=== PATIENT | male | born 2005 | race Hispanic/Latino ===

== ENCOUNTER 2023-06-28 20:55 | Observation (INO) | payer SELFPAY, OTHER ==
[~2023-06-28 20:55] MED LIST: Iopamidol-370 76% 500 ML MDV (1 ML CHARGE) ONE
[2023-06-28 21:23] LABS: #Basophils 0.1 thou/uL (0.0-0.2); #Eosinphils 0.2 thou/uL (0.0-0.7); #Monocytes 0.9 thou/uL (0.11-0.59); #Neutrophils 10.1 thou/uL (1.40-6.50); %Basophils 0.5 % (0.0-1.0); %Eosinophils 1.4 % (0.0-10.0); %Lymphocytes 24.8 % (28.0-48.0); %Monocytes 5.7 % (0.0-4.0); %Neutrophils 66.5 % (31.0-61.0); Hematocrit 46.4 % (42.0-52.0); Hemoglobin 15.4 g/dL (14.0-18.0); Mean Corpuscular HGB CONC 33.2 g/dL (32.0-36.0); Mean Corpuscular Hemoglobin 28.2 pg (25.0-35.0); Mean Corpuscular Volume 84.8 fl (78.0-98.0); Mean Platelet Volume 10.6 fL (7.4-10.4); Platelet Count 350 10x3/uL (130-400); RBC Distribution Width 12.5 % (11.5-14.5); Red Blood Cell (RBC) Count 5.47 mill/uL (4.00-5.20); White Blood Cell (WBC) Count 15.1 10x3/uL (4.8-10.8)
[2023-06-28 21:51] LABS: Troponin I Less than 0.010 ng/mL (< 0.028)
[2023-06-28 21:52] LABS: ALT (SGPT) 67 U/L (8-55); AST (SGOT) 57 U/L (10-45); Albumin 4.7 g/dL (3.5-5.0); Alkaline Phosphatase 115 U/L (50-130); Anion Gap 17 mmol/L (10-20); BUN (Urea Nitrogen) 13 mg/dL (8.4-21.0); Bilirubin, Total 0.5 mg/dL (0.2-1.2); Calc. Creatinine Clearance 0 mL/min (70-130); Calcium 9.6 mg/dL (7.8-10.44); Carbon Dioxide 16 mmol/L (22-29); Chloride 108 mmol/L (98-107); Estimated GFR 103; Globulin 2.8 g/dL (2.4-3.5); Glucose 129 mg/dL (70-105); Potassium 3.4 mmol/L (3.5-5.1); Protein, Total 7.5 g/dL (6.0-8.3); Sodium 138 mmol/L (136-145)
[2023-06-28 21:56] LABS: Alcohol Less than 10.0 mg/dL (Less than 10); Salicylate Less than 8.0 mg/dL (15.0-30.0)
[2023-06-28] MEDS ORDERED: Ondansetron PF 4 MG/2 ML Vial ONE (22:11)
[2023-06-28] MEDS ORDERED: Morphine 4 MG/ML VIAL ONE (22:11)
[2023-06-28] MEDS ORDERED: Ketorolac Tromethamine 30 MG (1 mL) VIAL ONE (22:11)
[2023-06-28 22:12] LABS: Acetaminophen Less than 10 mcg/mL (10.0-30.0); Lipase 31 U/L (8-78)
[2023-06-28] MEDS ORDERED: traMADol HCl 50 MG TAB PO PRN (23:06)
[2023-06-28] MEDS ORDERED: Morphine 2 MG/ML VIAL SLOW IVP PRN (23:06)
[2023-06-28] MEDS ORDERED: Ipratropium/Albuterol 3 ML NEB NEB PRN (23:06)
[2023-06-28] MEDS ORDERED: Ondansetron ODT 4 MG TAB PO PRN (23:06)
[2023-06-28] MEDS ORDERED: Cyclobenzaprine 10 MG TAB PO PRN (23:06)
[2023-06-28] MEDS ORDERED: Ondansetron PF 4 MG/2 ML Vial IVP PRN (23:06)
[2023-06-28] MEDS ORDERED: traMADol HCl 50 MG TAB PO SCH (23:59)
[2023-06-29 00:23] VITALS: BMI 32.2
[2023-06-29] MEDS: Ibuprofen 600 MG TAB PO SCH ×3 (00:46→14:34)
[2023-06-29] MEDS: Acetaminophen 500 MG TAB PO SCH ×4 (00:47→17:19)
[2023-06-29] MEDS: Lactated Ringer's 1,000 ML IV SCH ×2 (05:24→05:40)
[2023-06-29 05:42] LABS: #Monocytes 1.1 thou/uL (0.11-0.59); #Neutrophils 14.5 thou/uL (1.40-6.50); %Basophils 0.2 % (0.0-1.0); %Eosinophils 0.1 % (0.0-10.0); %Monocytes 6.2 % (0.0-4.0); %Neutrophils 85.1 % (31.0-61.0); Hematocrit 48.2 % (42.0-52.0); Hemoglobin 14.8 g/dL (14.0-18.0); Mean Corpuscular HGB CONC 30.7 g/dL (32.0-36.0); Mean Corpuscular Hemoglobin 28.2 pg (25.0-35.0); Mean Platelet Volume 11.1 fL (7.4-10.4); Platelet Count 289 10x3/uL (130-400); RBC Distribution Width 12.8 % (11.5-14.5); Red Blood Cell (RBC) Count 5.25 mill/uL (4.00-5.20)
[2023-06-29 05:43] LABS: Mean Corpuscular Volume 91.8 fl (78.0-98.0)
[2023-06-29 06:09] LABS: Anion Gap 15 mmol/L (10-20); BUN (Urea Nitrogen) 16 mg/dL (8.4-21.0); Calc. Creatinine Clearance 187 mL/min (70-130); Calcium 9.5 mg/dL (7.8-10.44); Carbon Dioxide 19 mmol/L (22-29); Chloride 107 mmol/L (98-107); Estimated GFR 127; Glucose 111 mg/dL (70-105); Magnesium 1.8 mg/dL (1.7-2.2); Phosphorus 4.2 mg/dL (2.3-4.7); Potassium 4.6 mmol/L (3.5-5.1); Sodium 136 mmol/L (136-145)
[2023-06-29] MEDS ORDERED: Senokot S 8.6-50 MG TAB PO SCH (09:00)
[2023-06-29] MEDS ORDERED: Polyethylene Glycol 3350 17 GM Packet PO SCH (09:00)
[2023-06-29] MEDS ORDERED: Multivitamin W/ Minerals 1 TAB PO SCH (09:00)
[2023-06-29 12:13] LABS: Amphetamine Not Detected (NotDetected); Barbiturates Screen Not Detected (NotDetected); Benzodiazepine Screen Detected (NotDetected); Cocaine Metabolite Screen Not Detected (NotDetected); Methadone Not Detected (NotDetected); Methamphetamine Not Detected (NotDetected); Opiate Screen Detected (NotDetected); Oxycodone Screen Not Detected (NotDetected); Phencyclidine (PCP) Not Detected (NotDetected); THC/Cannabinoid Screen Not Detected (NotDetected); Tricyclic Screen Not Detected (NotDetected)
[2023-06-29 15:59] VITALS: BP 133/78; TEMP 99.1
[2023-07-02] MEDS ORDERED: FLU VACC QS2023-24(6MOS UP)/PF 60 MCG/0.5 ML SYRINGE IM ONE (09:00)
== END 2023-06-29 17:42 | disposition home or self-care (01) ==
LOC: ERS 20:55 → SURG A 22:45
PROVIDERS: ADMIT Surgery; ATTEND Surgery
DX: S22.32XA Fracture of one rib, left side, initial encounter for closed fracture (principal); S06.0X0A Concussion without loss of consciousness, initial encounter; V89.2XXA Person injured in unspecified motor-vehicle accident, traffic, initial encounter
CPT/HCPCS: 36415; 70450; 71260; 72125; 74177; 80048; 80053; 80306; 80307; 83690; 83735; 84100; 84146; 84484; 85025; 95816; 95819; 96374; 96375; G0378; G0390; J1885; J2270; J2405; J7120; Q9967